=== PATIENT | male | born 1950 | race Caucasian/White ===

== ENCOUNTER → 2016-07-30 | Outpatient (CLI) | payer OTHER, BC ==
[2016-07-30 11:02] LABS: HEMOGLOBIN A1C 7.14 % (4.2-6.0)
[2016-07-30 11:24] LABS: BLOOD UREA NITROGEN 17 mg/dL (7-22); BUN/CREATININE RATIO 21.25 (6-20); CALCIUM 9.9 mg/dL (8.7-10.7); EST GLOMERULAR FILTRATION > 60 (>60 ml/min/1.73m(2)); MAGNESIUM 1.3 mg/dL (1.6-2.4)
== END ==
LOC: MOB LAB 09:44
DX: E11.9 Type 2 diabetes mellitus without complications (principal); E83.52 Hypercalcemia; E83.42 Hypomagnesemia; I10 Essential (primary) hypertension
CPT/HCPCS: 36415; 80048; 83036; 83735